=== PATIENT | female | born 1950 | race Caucasian/White ===

== ENCOUNTER → 2018-11-19 | Outpatient (CLI) | payer MEDICARE, OTHER ==
[~2018-11-19] VITALS: Ht 165.1 cm; Wt 94.3 kg
[~2018-11-19] MED LIST: B COMPLEX #11 TA1 PO; BENICAR40 MG PO; CALCIUM CITRATE1 TA1 PO; CENTRUM SILVER1 TAB PO; CLA PO; CLARITIN 1010 MG/TAB PO; ESTROVEN MAX400 MCG PO; EVENING PRIMRO500 MG PO; MAG-OX 400400 MG/TAB PO; MASON NATURAL2000 IU PO; MUCINEX 60600 MG/TA1 PO; NASONEX SPRAY17 GM NS; NORMODYNE100 MG PO; PROBIOTIC FORMU1 CAP PO; TUMERIC CURCUMIN PO
[2018-11-19 10:24] VITALS: BP 106/76; PULSE 80
== END ==
LOC: LIGHT 09:48
DX: E66.01 Morbid (severe) obesity due to excess calories (principal); Z68.34 Body mass index [BMI] 34.0-34.9, adult; Z71.3 Dietary counseling and surveillance
CPT/HCPCS: G0463

== ENCOUNTER → 2018-12-08 | Outpatient (CLI) | payer MEDICARE, OTHER | LOC: LIGHT 08:44 | DX: I10 Essential (primary) hypertension (principal); G47.33 Obstructive sleep apnea (adult) (pediatric); E66.9 Obesity, unspecified; Z68.34 Body mass index [BMI] 34.0-34.9, adult; Z71.3 Dietary counseling and surveillance ==

== ENCOUNTER → 2018-12-08 | Outpatient (CLI) | payer MEDICARE, OTHER ==
[~2018-12-08] VITALS: Ht 165.1 cm; Wt 94.3 kg
[2018-12-08 13:04] VITALS: BP 122/68; PULSE 82
== END ==
LOC: LIGHT 10:49
DX: I10 Essential (primary) hypertension (principal); G47.33 Obstructive sleep apnea (adult) (pediatric); E66.9 Obesity, unspecified; Z68.34 Body mass index [BMI] 34.0-34.9, adult; Z71.3 Dietary counseling and surveillance

== ENCOUNTER → 2018-12-11 | Outpatient (CLI) | payer MEDICARE, OTHER ==
[~2018-12-11] VITALS: Ht 165.1 cm; Wt 93.2 kg
[2018-12-11 11:19] VITALS: BP 136/70; PULSE 94
== END ==
LOC: LIGHT 10:58
DX: I10 Essential (primary) hypertension (principal); G47.33 Obstructive sleep apnea (adult) (pediatric); E66.9 Obesity, unspecified; Z68.34 Body mass index [BMI] 34.0-34.9, adult; Z71.3 Dietary counseling and surveillance
CPT/HCPCS: G0463

== ENCOUNTER → 2019-03-19 | Outpatient (CLI) | payer MEDICARE, OTHER ==
[~2019-03-19] VITALS: Ht 165.1 cm; Wt 91.2 kg
[~2019-03-19] MED LIST changes: +CONTRAVE1 TER PO
[2019-03-19 10:22] VITALS: BP 144/70; PULSE 64
== END ==
LOC: LIGHT 10:04
DX: Z68.33 Body mass index [BMI] 33.0-33.9, adult (principal); I10 Essential (primary) hypertension; G47.30 Sleep apnea, unspecified
CPT/HCPCS: G0463

== ENCOUNTER → 2019-04-16 | Outpatient (CLI) | payer MEDICARE, OTHER ==
[~2019-04-16] VITALS: Ht 165.1 cm; Wt 89.1 kg
[2019-04-16 13:42] VITALS: BP 108/50; PULSE 72
== END ==
LOC: LIGHT 13:09
DX: Z68.32 Body mass index [BMI] 32.0-32.9, adult (principal); I10 Essential (primary) hypertension; G47.30 Sleep apnea, unspecified
CPT/HCPCS: G0463

== ENCOUNTER → 2019-07-30 | Outpatient (CLI) | payer MEDICARE, OTHER ==
[~2019-07-30] VITALS: Ht 165.1 cm; Wt 85.3 kg
[2019-07-30 16:01] VITALS: BP 118/70; PULSE 87
== END ==
LOC: LIGHT 05-21 11:04
DX: Z68.36 Body mass index [BMI] 36.0-36.9, adult (principal); I10 Essential (primary) hypertension
CPT/HCPCS: G0463

== ENCOUNTER → 2019-09-24 | Outpatient (CLI) | payer MEDICARE, OTHER ==
[~2019-09-24] VITALS: Ht 165.1 cm; Wt 85.0 kg
[~2019-09-24] MED LIST changes: +TRIPHALA PO
[2019-09-24 13:00] VITALS: BP 106/70; PULSE 84
== END ==
LOC: LIGHT 09-10 13:39
DX: E66.8 Other obesity (principal); Z68.31 Body mass index [BMI] 31.0-31.9, adult; I10 Essential (primary) hypertension; G47.30 Sleep apnea, unspecified
CPT/HCPCS: G0463

== ENCOUNTER → 2019-11-26 | Outpatient (CLI) | payer MEDICARE, OTHER ==
[~2019-11-26] VITALS: Ht 165.1 cm; Wt 83.0 kg
[~2019-11-26] MED LIST changes: -MASON NATURAL2000 IU PO; +PRAVACHOL 20MG20 MG PO; +VITAMIND3 5000 PO
[2019-11-26 14:01] VITALS: BP 124/60; PULSE 82
== END ==
LOC: LIGHT 11-12 11:07
DX: E66.8 Other obesity (principal); Z68.30 Body mass index [BMI] 30.0-30.9, adult; I10 Essential (primary) hypertension; G47.30 Sleep apnea, unspecified
CPT/HCPCS: G0463